=== PATIENT | female | born 2000 | race Caucasian/White ===

== ENCOUNTER 2023-12-30 19:23 | Emergency (ER) | payer OTHER, SELFPAY ==
--- NOTE | 2023-12-30 19:30 | ED.EYEPROB ---
HPI - Eye Problem General Chief complaint: Eye Problems Stated complaint: R eye pain Time Seen by Provider: 12/30/23 19:58 Source: patient and RN notes reviewed Mode of arrival: ambulatory Limitations: no limitations History of Present Illness HPI Narrative: 23-year-old female presents with concern for right eye drainage, burning, itchiness that started today while she was at work. She denies injury to the eye. She does not were contact lenses. She denies vision changes. chief complaint: other (eye drainage) Related Data Allergies Allergy/AdvReac Type Severity Reaction Status Date / Time No Known Allergies Allergy Verified 12/30/23 19:50 Review of Systems Review of Systems: CONSTITUTIONAL: Denies malaise, chills, sweats, or fever. EYES: Denies visual changes. Reports right eye redness, irritation, discharge. ENT: Denies rhinorrhea, congestion, sinus pain, otalgia or sore throat. SKIN: Denies rash or itching. NEUROLOGIC: Denies numbness, weakness, or headache. PSYCHIATRIC: Denies anxiety or depression. All systems reviewed & are unremarkable except as noted in HPI and below PMFSH Comments At time of signature, agree with nursing past medical, surgical, social and family history. There is no relevant family history pertinent to the presenting complaint Exam Narrative: GENERAL: Well-appearing, well-nourished, and in no acute distress. HEAD: Normocephalic, atraumatic. EYES: PERRLA, sclera clear, and EOMI. No nystagmus. Right conjunctivae injected, mildly edematous. Upper and lower eyelid unremarkable, no periorbital edema noted ENT: Nares clear, turbinates pink, no rhinorrhea or epistaxis. Mucous membranes moist. TM pearly saleem with sharp light reflex bilaterally; no tragal tenderness. NECK: Supple. CHEST: No respiratory distress. Speaks in full sentences. HEART: Regular rate and rhythm. SKIN: Warm, dry, no visible rash. NEURO: Alert and oriented x3. PSYCH: Normal mood and affect Course Course Emergency Course: Patient is aware of diagnosis, understands and agrees to treatment plan. Anticipatory guidance given. Patient agrees to follow-up as directed and is aware of reasons to seek care at the emergency department. Portions of this record may have been created with voice recognition software Level of Care: Express Care Visit Vital Signs Vital signs: Reviewed. MDM - Eye Problem MDM Narrative Medical decision making narrative: Consideration of the following conditions may be warranted for the presenting problem, they are not final diagnoses: Bacterial conjunctivitis, allergic conjunctivitis, viral conjunctivitis, foreign body, blepharitis, chalazion, hordeolum, corneal abrasion, preseptal cellulitis, orbital cellulitis. No evidence of proptosis, ophthalmoplegia, vision loss, pain with eye movement. Exam findings show no acute concerns or changes; patient is non-toxic appearing and is in no distress. Patient is appropriate for outpatient treatment and follow-up. Critical Care Time Critical Care Time Critical Care Time: No Discharge Plan Discharge Clinical Impression: Conjunctivitis Patient Disposition: Home, Self-Care Condition: Stable Instructions: Conjunctivitis (ED) Additional Instructions: Do not touch or rub your eye. Use a warm or cool washcloth on your eye for comfort Use eyedrops as directed Practice good handwashing and hygiene to prevent spread of infection You may take Tylenol or ibuprofen for pain Follow-up with PCP or metal framer if condition is not improving in 2-3days. Go to the emergency room if you have pain behind your eye, pressure behind your eye, difficulty seeing, or other severe symptoms Prescriptions: New polymyxin B sulf-trimethoprim 10,000 unit- 1 mg/mL drops 1 drp RIGHT EYE Q3H 7 Days Qty: 10 0RF Rx Instructions: while awake; do not exceed 6 doses in 24 hours Follow-up/Referrals: UNKNOWN,DOCTOR [Non-Staff] - Time of Dis
[2023-12-30 19:45] VITALS: BP 123/78; PULSE 76; RESP 18; TEMP 36.6; O2SAT 100
== END 2023-12-30 20:08 | disposition home or self-care (01) ==
PROVIDERS: Emergency Provider Nurse Practitioner
DX: H10.9 Unspecified conjunctivitis (principal)
CPT/HCPCS: 99213; G0463

== ENCOUNTER 2025-01-25 10:34 | Emergency (ER) | payer OTHER, SELFPAY ==
[2025-01-25 10:36] VITALS: BP 135/87; PULSE 92; RESP 18; TEMP 36.6; O2SAT 100
--- OUTSIDE RECORDS SUMMARY | 2025-01-25 11:07 | XMS_ITS | Clinical Summary ---
Author Organization [facility] Address [address] [place] [address] Care Team Providers Care Dictaphone Mechanic Name Role Phone Shasha Anderson MD Unavailable [phone] Shasha Anderson MD Primary Care Provider [phone] Source Comments [facility],non-owned Affiliates and Associated Physician Practices is amultiple site organization consisting of ambulatory clinics and hospital sitesin [place], [place], [place] and [place]. This disclosure is being madepursuant to the Care Everywhere program and may not contain all information available regarding this patient. Last updated 18.[facility] [employer] Allergies No known active allergies Medications * Be aware that medications may not be up to date on this document. Alwaysverify current medications with the patient. SPRINTEC 28 0.25-35 MG-MCG tablet TAKE 1 TABLET BY MOUTH ONCE DAILY 84 tablet 12/03/2019 Active Active Problems Problem Noted Date Diagnosed Date Interstitial cystitis 09/14/2019 Labial swelling 10/25/2016 Assessment & Plan (10/27/2016 11:56 AM BOILERS INSPECTOR): Assessment: Vesna is a previously healthy 16 y.o. female with labial swelling, vaginal discharge, fevers, dysuria concerning for STI vs vulvovaginitis vs post- viral syndrome s/p influenza vs Behcets. No evidence of fluctuant mass on exam, abscess/cyst less likely. No aphthous ulcers or other known lesions of the GI tract and no fam hx of Behcets. HSV negative, GC/chlamydia, chlamydia trachomatis pending; pt also denies sexual activity so STI less likely. UAx2 concerning for UTI; urine culture x2 negative. Per exam under sedation, swollen R labia minora with ulcer of about 2 cm in the internal aspect and some white vaginal discharge appreciated. Post-viral syndrome likely given symptom onset and exclusion of other likely etiology. Patient currently has poor PO intake and has not been able to move significantly due to pain. Current pain management with toradol has improved pain. Patient still has catheter in place and has not attempted voiding without catheter since admission. Patient has also been unable to maintain personal hygiene around ulcer due to pain. Discharge planning is contingent upon improved PO intake, ability to void without bautista catheter, and ability to maintain hygiene around ulcerated and edematous labia. Plan: - Discontinue bautista catheter today - Urine GC/chlamydia, HSV viral cx, chlamydia trachomatis cx, urine cx pending - HCG, HSV PCR negative; UA cx (10/23) by PCP negative - Clindamycin IV 600mg q8h (started 10/25), Rocephin IV 2000mg q24h (started 10/25) for coverage of common UTI organisms, MRSA - Oxycodone 5mg q4h, Tylenol 650mg q4h PRN, Ibuprofen 400mg q6h pRN, Morphine 2mg IV q2 PRN, topical lidocaine 4% PRN for pain management - Metoclopramide 10mg IV q6h PRN, Zofran 8mg q6h PRN for nausea, vomiting - D5 1/2 NS with 20meq KCL at 96 mL/hr (maintenance fluids) - Regular diet - Surgery signed off; Ob-road consultant consult pending Assessment & Plan (10/27/2016 11:28 AM BOILERS INSPECTOR): Assessment: Vesna is a 16 year old female who presents with right labia minora swelling with ulcerations noted and urinary retention secondary to pain. Differential for ulcerations include STI organisms (HSV, G/C), however could be post viral from influenza, or rheumatologic such as Bechets, Crohns. At risk of vulvovaginitis with secondary infection (fungal or bacterial) from ulceration. Requiring significant pain control with IV medications, has not been able to move until today. Improvement with antiinflammatory medications. May need to consider biopsy of the lesion. Requires admission until patient is able to tolerate PO, have pain control with PO meds, urinate by herself, and be able to provide self hygiene. Plan: - discontinue Bautista catheter - Pain control with scheduled IV toradol, oxycodone prn moderate pain (breakthrough) - topical lidocaine 3 times daily prn pain, perineal ice pack, will attempt sitz baths today - phenazopyridine for dysuria -Regular diet - MIVF - Zofran 8mg q 6hrs prn nausea, vomiting; reglan 10mg q 6h - will discontinue antibiotics per culture results - will check BMP to get Cr with nephrotoxic meds - will continue acyclovir per OB recs - IV nexium for heartburn - follow up with Dr. Kim outpatient Assessment & Plan (10/26/2016 10:19 PM BOILERS INSPECTOR): Assessment: Vesna is a previously healthy 16 y.o. female with labial swelling, vaginal discharge, fevers, dysuria concerning for Bartholin gland cyst vs STI vs vulvovaginitis vs post-viral syndrome s/p influenza. No evidence of fluctuant mass on exam, abscess/cyst less likely. Per exam under sedation, swollen R labia minora with ulcer of about 2 cm in the internal aspect and some white vaginal discharge appreciated. HSV negative, GC/chlamydia, chlamydia trachomatis pending; however, pt denies sexual activity so also less likely. UAx2 concerning for UTI; however, urine culture x1 negative, second cx pending. Plan: - Bautista catheter in place to aid with voiding - Urine GC/chlamydia, HSV viral cx, chlamydia trachomatis cx, urine cx pending - HCG, HSV PCR negative; UA cx (10/23) by PCP negative - Clindamycin IV 600mg q8h (started 10/25), Rocephin IV 2000mg q24h (started 10/25) for coverage of common UTI organisms, MRSA - Oxycodone 5mg q4h, Tylenol 650mg q4h PRN, Ibuprofen 400mg q6h pRN, Morphine 2mg IV q2 PRN, topical lidocaine 4% PRN for pain management - Metoclopramide 10mg IV q6h PRN, Zofran 8mg q6h PRN for nausea, vomiting - D5 1/2 NS with 20meq KCL at 96 mL/hr (maintenance fluids) - Regular diet - Surgery signed off; Ob-road consultant consult pending Assessment & Plan (10/26/2016 6:20 PM BOILERS INSPECTOR): Assessment: 16yo female with a 1 day hx of labial swelling presents with severe edema of the left labia minora. Etiology unknown, negative for HSV, culture + for nellie, urine NGTD. Genital ulcer from viral infection possible. Can't r/o malignacy. Plan: -Treated yeast with Diflucan. -Abx Clinda and Rocephin -Zofran and Reglan for nausea. -Toradol, Morphine, oxy for pain -REgular diet -Surgery consulted- no intervention possible when patient was sedated yesterday- not a cyst or abscess for I&D -OBGYN consulted- trying to determine inpatient biopsy vs outpatient. Assessment & Plan (10/26/2016 11:17 AM BOILERS INSPECTOR): Assessment: Vesna is a 16 year old female who presents with right labia minora swelling with ulcerations noted and urinary retention secondary to pain. Differential for ulcerations include STI organisms (HSV, G/C), however could be post viral from influenza, or rheumatologic Bechets, Crohns. At risk of vulvovaginitis with secondary infection (fungal or bacterial) from ulceration. Requiring significant pain control. May need to consider biopsy of the lesion. Plan: -continue Bauitsta catheter in place -FU urine culture -Pain control scheduled oxycodone, morphine for break thorough pain -Regular diet - MIVF - Zofran 8mg q 6hrs prn nausea, vomiting - OBGYN consult - will cover MRSA with Clindamycin and Rocephin to cover common UTI organisms - topical lidocaine q 4 hrs Assessment & Plan (10/25/2016 2:49 PM BOILERS INSPECTOR): Assessment: Vesna is a previously healthy 16 y.o. female with Plan: Assessment & Plan (10/25/2016 3:07 AM BOILERS INSPECTOR): Assessment: Vesna is a 16 year old female who presents with right labia minora swelling with ulcerations noted and urinary retention secondary to pain. Bautista placed in ER, cultures obtained. Denies sexual activity, started one new bathroom product (body wash) last week, and denies using any sexual toys. Etiology includes STDs (gonorrhea, chlamydia), HSV infection, bacterial infection. Plan: -Bautista catheter in place -FU G/C urine -FU urine culture -FU HSV PCR -Pain control with tylenol, ibuprofen, oxycodone PRN, and morphine PRN -MIVF -Regular diet -Zofran PRN Patellofemoral stress syndrome of both knees 10/2015 Pain in the hip 02/10/2010 Knee pain 02/10/2010 Immunizations Immunization Administration Dates Next Due DTaP VACCINE IM (6wk-6yrs) 01/17/2006,,2001,08/28,2001 HEP A PEDS 2 DOSE 06/18/2016,06/24/2014 HEP B VACCINE, PED/ADOL 01/27/2002,2001, HIB BOOSTER 11/16/2002, 2,2001,06/23 Human Papilloma Virus Nineva lent Vaccine 06/18/2016 Human Papilloma Virus Manuel valent Vaccine 08/27/2014,06/24/2014 INFLUENZA VACCINE, QUADR. (F LUZONE; FLULAVAL; FLUARIX; AFLURIA QUADRIVALENT; 6MO+), 0.5 ML (IIV4) 06/25/2018 MENINGOCOCCAL ACWY (MCV4P) VAC IM 06/25/2018,11/2012 MMR 01/17/2006,04/23/2002 PNEUMOCOCCAL CONJ, PEDS 09/15/2002,10/30,2001,06/23 POLIO IPV 01/17/2006, 3,2001,06/23 PPD 01/17/2006,04/23/2002 TDAP (7yrs+) 02/09/2013 VARICELLA 02/09/2013,09/15/2002 Family History Medical History Relation Name Comments Hypertension Father Thyroid Disease Mother Relation Name Status Comments Father Mother Social History Tobacco Use Types Packs/Day Years Used Date Smoking Tobacco: Never Smokeless Tobacco: Never Alcohol Use Standard Drinks/Week Comments No 0 (1 standard drink = 0.6 oz pur e alcohol) Comments No Sex and Gender Information Value Date Recorded Sex Assigned at Not on file Legal Sex Female 6:51 AM BOILERS INSPECTOR Gender Identity Not on file Sexual Orientation Not on file Last Filed Vital Signs Vital Sign Reading Time Taken Comments Blood Pressure 104/64 06/25/2018 9:10 AM CDT Pulse 71 06/25/2018 9:10 AM CDT Temperature 36.6 C (97.8 F) 06/16/2019 1:37 PM CDT Respiratory Rate 16 10/27/2016 6:05 PM BOILERS INSPECTOR Oxygen Saturation 98% 10/27/2016 6:05 PM BOILERS INSPECTOR Inhaled Oxygen Concentration 100% 10/24/2016 1 1:25 PM BOILERS INSPECTOR Weight 57.2 kg (126 lb) 06/16/2019 1:37 PM CDT Height 158.1 cm (5' 2.25 ) 06/25/2018 9:10 AM CD T Body Mass Index - - Plan of Treatment Health Maintenance Due Date Last Done Comments PAP SMEAR 2001 HIV SCREENING 2016 MENINGOCOCCAL (Group B) VACC INE SHARED DECISION-MAKING (1 of 2 - Standard) 2017 CHLAMYDIA/GONORRHEA SCREENING 11/13/2018, 10/25/2016, 10/25/2016 HEPATITIS C SCREENING 04/13/2019 DTAP/TDAP/TD VACCINES (7 - T d or Tdap) 02/09/2023 02/09/2013, 01/17/2006, 11/16/2002, Additional history exists COVID-19 VACCINE (1 - 2023-2 5 season) 2024 DEPRESSION SCREENING 09/09/2024 INFLUENZA VACCINE (Season Ended) 2025 06/25/20 18 ZOSTER VACCINE (1 of 2) 2051 HEPATITIS B VACCINE Completed 01/27/2002, 2001, 2001 PNEUMOCOCCAL VACCINE Completed 09/15/2002, 2001, 2001, Additional history exists HIB VACCINE Completed 11/16/2002, 10/11, 2001, Additional history exists HPV VACCINE Completed 06/18/2016, 08/09, 06/24/2014 MENINGOCOCCAL GROUPS A/C/Y/W VACCINE Completed 06/25/2018, 02/09/2013 Goals Goal Patient Goal Type Associated Problems Recent Progress Patient-Stated? Author Use safety retraint in car Lifestyle On track( 019 3:37 PM BOILERS INSPECTOR) Anju Diaz RN Procedures Procedure Name Priority Date/Time Associated Diagnosis Comments CHLAMYDIA + GC AMPLIFIED PROBE Routine 11/13/2017 11:26 AM BOILERS INSPECTOR Dysuria from Last 3 Months or Most Recently Relevant to Health Maintenance Results * CHLAMYDIA + GC AMPLIFIED PROBE (11/13/2017 11:26 AM BOILERS INSPECTOR) Chlamydia CARRIE Urine Negative Negative [facility] ACCOUNT BILL GC CARRIE Urine Negative Negative [facility] ACCOUNT BILL Microbiology URINE / Unknown 11/13/2017 1 1:26 AM BOILERS INSPECTOR 11/13/2017 Narrative Resulting Agency Comment [facility] [place] [address] [facility] [place] [id number] Shasha Anderson MD LAB - MICROBIOLOGY ORDERABLES Final Result [facility] ACCOUNT BILL [address] [place] [address] from Last 3 Months or Most Recently Relevant to Health Maintenance Insurance [facility] [place] [id number] Care Teams Dictaphone Mechanic Relationship Specialty Start Date End Date Shasha Anderson MD PCP - Pediatrics 09/20/09 Shasha Anderson MD PCP - General Pediatrics 06/04/14
--- OUTSIDE RECORDS SUMMARY | 2025-01-25 11:07 | XMS_ITS | Encounter Summary ---
Author Organization [facility] Address [address] [place] [id number] Care Team Providers Care Human Intelligence Name Role Phone Johanny Veliz APRN Primary Care Provider [phone] Erum Oquendo NP Primary Care Provider [phone] Encounter Details Date Type Department Care Team (Late st Contact Info) Description 11/29/2023 IntroNiche Message [address] [id number] [facility] Social History Tobacco Use Types Packs/Day Years Used Date Smoking Tobacco: Never Smokeless Tobacco: Never Alcohol Use Standard Drinks/Week Comments No 0 (1 standard drink = 0.6 oz pur e alcohol) AUDIT-C Answer Date Recorded Frequency of Alcohol Consumption Never 07/16/2019 Average Number of Drinks Not on file 019 Frequency of Binge Drinking Not on file 03/2019 PHQ-2 Answer Date Recorded Patient Health Questionnaire-2 Score 0 06/25/2023 Comments No Sex and Gender Information Value Date Recorded Sex Assigned at Not on file Legal Sex Female 8:01 AM CDT Gender Identity Not on file Sexual Orientation Not on file documented as of this encounter Plan of Treatment Not on file documented as of this encounter Visit Diagnoses Not on filedocumented in this encounter Care Teams Human Intelligence Relationship Specialty Start Date End Date Johanny Veliz APRN PCP - General NURSE PRACTITIONER 11/08/23 03/25/24 Erum Oquendo, PANCHO [address] [place] [address] PCP - General NURSE PRACTITIONER 03/26/24 documented as of this encounter
--- OUTSIDE RECORDS SUMMARY | 2025-01-25 11:07 | XMS_ITS | Clinical Summary ---
Author Organization [facility] Address [address] [place] [address] Care Team Providers Care Customer Experience Manager Name Role Phone Jere Erum Luu PIER WORKER Primary Care Provider [phone] Allergies No known active allergies Medications No known medications Active Problems Problem Noted Date Diagnosed Date Interstitial cystitis 08/21/2019 Resolved Problems Problem Noted Date Diagnosed Date Resolved Date Dysuria 07/16/2019 01/23/2024 Labial swelling 10/25/2016 01/23/2024 Overview (06/25/2023): Last Assessment & Plan: Assessment: Vesna is a previously healthy 16 [...] - Regular diet - Surgery signed off; Ob-triage specialist consult pending Influenza A 10/05/2016 01/23/2024 Overview (06/25/2023): Date Onset: 10/05/2016 Patellofemoral stress syndrome of both knees 6 01/23/2024 Knee pain 02/10/2010 01/23/2024 Pain in the hip 02/10/2010 01/23/2024 Immunizations Immunization Administration Dates Next Due Dtap (Acel-Immune) 01/17/2006, 3,2001,2001, HPV GARDASIL 9-VALENT 06/18/2016 HPV4 (Gardasil) 08/27/2014,06/24/2014 Hepatitis A (Havrix [address]) 06/18/2016, 014 Hepatitis B Pediatric 01/27/2002,2001,08/0 05/2001 Hib (Prohibit) 11/16/2002,2001,2001 ,2001 Influenza Adult (Generic) 06/25/2018,06/25/2018 MMR (MMRII) 01/17/2006,04/23/2002 Menactra 06/25/2018,02/09/2013 Pneumococcal (Generic) 09/15/2002,2001,,2001 Polio IPV (Ipol) 01/17/2006,09/15/2002, 1,2001 Tdap (Boostrix) 01/16/2024 Tdap (Generic) 02/09/2013 Varicella (Varivax) 02/09/2013,09/15/2002 Family History Medical History Relation Comments bladder cancer Maternal Grandmother Relation Status Comments Maternal Grandmother Social History Tobacco Use Types Packs/Day Years Used Date Smoking Tobacco: Never Smokeless Tobacco: Never Tobacco Cessation:Counseling Given: No Alcohol Use Standard Drinks/Week Comments No 0 (1 standard drink = 0.6 oz pur e alcohol) AUDIT-C Answer Date Recorded Frequency of Alcohol Consumption Never 07/16/2019 Average Number of Drinks Not on file 019 Frequency of Binge Drinking Not on file 03/2019 PHQ-2 Answer Date Recorded Patient Health Questionnaire-2 Score 0 01/24/2024 Comments No Sex and Gender Information Value Date Recorded Sex Assigned at Not on file Legal Sex Female 8:01 AM CDT Gender Identity Not on file Sexual Orientation Not on file Last Filed Vital Signs Vital Sign Reading Time Taken Comments Blood Pressure 128/74 03/05/2024 11:01 AM CDT Pulse 85 03/05/2024 11:01 AM CDT Temperature 36.1 C (96.9 F) 03/05/2024 11:01 AM CDT Respiratory Rate 18 03/05/2024 11:01 AM CDT Oxygen Saturation 100% 03/05/2024 11:01 AM CDT Inhaled Oxygen Concentration - - Weight 77.1 kg (170 lb) 03/05/2024 11:01 AM CDT Height 157.5 cm (5' 2 ) 03/05/2024 11:01 AM CDT Body Mass Index 31.09 03/05/2024 11:01 AM CDT Plan of Treatment Health Maintenance Due Date Last Done Comments Cervical Cancer Screening Pap Smear (Age 21 to 29) Every 3 Years 2001 Cervical Cancer Screening 2001 Annual Physical 2004 Chlamydia Screening Females ages 16-24 2017 Meningococcal B Vaccine (1 of 2 - Standard) 2017 COVID-19 Vaccine ( - season) 2024 PHQ-2 (Physician Hannah) 09/09/2024 01/24/2024 DTaP, Tdap and Td Vaccines (8 - Td or Tdap) 01/15/2034 01/16/2024, 02/09/2013, 01/17/2006, Additional history exists Hepatitis C 11/13/2053 Postponed from 2019 (Patient Refused) Hepatitis B Vaccines Completed 01/27/2002, 2001, 2001 Pneumococcal Vaccine: Pediatrics (0 to 5 Years) and At-Risk Patients (6 to 49 Years) Aged Out 09/15/2002, 2001, 2001, Additional history exists No longer eligible based on patient's age to complete this topic HPV Vaccines Completed 06/18/2016, 08/09, 06/24/2014 Meningococcal Vaccine Completed 06/25/2018, 013 RSV Immunizations Under 20 Months Aged Out No longer eligible based on patient's age to complete this topic Insurance [employer] [facility] Care Teams Customer Experience Manager Relationship Specialty Start Date End Date Erum Oquendo NP [address] [place] [address] PCP - General NURSE PRACTITIONER 03/26/24
[2025-01-25 11:34] LABS: BEDSIDEPREGUCG Negative (Negative)
[2025-01-25 11:40] LABS: Basophils Absolute Auto 0.1 K/mm3 (0.0-0.1); Basophils Percent Auto 0.8 % (0.2-1.2); Eosinophils Absolute Auto 0.5 K/mm3 (0-0.3); Eosinophils Percent Auto 8.4 % (0-4.4); Hematocrit 40.3 % (37.0-47.0); Immature Granulocyte Absolute 0.02 K/mm3 (0.00-0.031); Immature Granulocyte Percent A 0.3 % (0-0.5); Lymphocytes Absolute Auto 1.39 K/mm3 (0.9-3.2); Mean Corpuscular HGB Conc 32.3 g/dl (32-36); Mean Corpuscular Hemoglobin 27.7 pg (26-34); Mean Corpuscular Volume 85.7 fl (80-100); Mean Platelet Volume 9.3 fl (7.4-10.4); Monocytes Absolute Auto 0.9 K/mm3 (0.1-0.6); Monocytes Percent Auto 14.1 % (2.6-8.5); Neutrophils Absolute Auto 3.5 K/mm3 (1.3-6.7); Neutrophils Percent Auto 54.4 % (45.5-73.1); Platelet Count Result 283 k/mm3 (150-375); Red Cell Distribution Width 13.1 % (11.5-14.5); White Blood Count 6.3 K/mm3 (4.5-10.0)
[2025-01-25 11:43] LABS: Add Urine Microscopic? YES; Appearance Urine Cloudy (Clear); Bacteria Urine 2+ /hpf; Bilirubin Urine Negative (Negative); Blood Urine Negative (Negative); Color Urine Yellow (Yellow); Glucose Urine UA Negative (Negative); Ketones Urine Negative (Negative); Leukocyte Esterase Ur 1+ LEU/UL (Negative); Nitrate Urine Negative (Negative); Non Pathogenic Casts 0-2; Protein Urine Negative (Negative); RBC Urine 0-2 /hpf (0-2); Specific Grav Ur 1.021 (1.001-1.035); Squamous Epithelial Cell Urine Few /hpf (Few); pH Urine 7.5 (5.0-9.0)
[2025-01-25 11:49] LABS: Alanine Aminotransferase 15 U/L (6-35); Albumin Level 4.4 g/dL (3.5-5.1); Alkaline Phosphatase 75 U/L (38-126); Anion Gap 8 mmol/L (4-12); Aspartate Amino Transferase 23 U/L (14-36); Bilirubin,Total 0.5 mg/dL (0.2-1.3); Blood Urea Nitrogen 11 mg/dL (7-17); Calcium 8.8 mg/dL (8.4-10.2); Carbon Dioxide 26 mmol/L (22-30); Chloride 105 mmol/L (98-107); Estimated CRCL calculation 93 ml/min; Estimated Glomerular Filt Rate > 60; Glucose 92 mg/dL (65-110); Lipase 44 U/L (23-300); Potassium 4.1 mmol/L (3.4-5.0); Sodium 139 mmol/L (137-145)
--- OUTSIDE RECORDS SUMMARY | 2025-01-25 13:01 | XMS_ITS | Clinical Summary ---
Author Organization [facility] Address [address] [place] [address] Care Team Providers Care Pivot Maker Name Role Phone Shasha Anderson MD Unavailable [phone] Shasha Anderson MD Primary Care Provider [phone] Source Comments [facility],non-owned Affiliates and Associated Physician Practices is amultiple site organization consisting of ambulatory clinics and hospital sitesin [place], [place], [place] and [place]. This disclosure is being madepursuant to the Care Everywhere program and may not contain all information available regarding this patient. Last updated 18.[facility] [place] Allergies No known active allergies Medications * Be aware that medications may not be up to date on this document. Alwaysverify current medications with the patient. SPRINTEC 28 0.25-35 MG-MCG tablet TAKE 1 TABLET BY MOUTH ONCE DAILY 84 tablet 12/03/2019 Active Active Problems Problem Noted Date Diagnosed Date Interstitial cystitis 09/14/2019 Labial swelling 10/25/2016 Assessment & Plan (10/27/2016 11:56 AM POWERHOUSE ELECTRICIAN): Assessment: Vesna is a previously healthy 16 [...] - Regular diet - Surgery signed off; Ob-paralegal supervisor consult pending Assessment & Plan (10/27/2016 11:28 AM POWERHOUSE ELECTRICIAN): Assessment: Vesna is a 16 year old [...] outpatient Assessment & Plan (10/26/2016 10:19 PM POWERHOUSE ELECTRICIAN): Assessment: Vesna is a previously healthy 16 [...] - Regular diet - Surgery signed off; Ob-paralegal supervisor consult pending Assessment & Plan (10/26/2016 6:20 PM POWERHOUSE ELECTRICIAN): Assessment: 16yo female with a 1 day [...] outpatient. Assessment & Plan (10/26/2016 11:17 AM POWERHOUSE ELECTRICIAN): Assessment: Vesna is a 16 year old [...] consider biopsy of the lesion. Plan: -continue Bautista catheter in place -FU urine culture -Pain control scheduled oxycodone, morphine for break thorough pain -Regular diet - MIVF - Zofran 8mg q 6hrs prn nausea, vomiting - OBGYN consult - will cover MRSA with Clindamycin and Rocephin to cover common UTI organisms - topical lidocaine q 4 hrs Assessment & Plan (10/25/2016 2:49 PM POWERHOUSE ELECTRICIAN): Assessment: Vesna is a previously healthy 16 y.o. female with Plan: Assessment & Plan (10/25/2016 3:07 AM POWERHOUSE ELECTRICIAN): Assessment: Vesna is a 16 year old [...] on file Legal Sex Female 6:51 AM POWERHOUSE ELECTRICIAN Gender Identity Not on file Sexual Orientation Not on file Last Filed Vital Signs Vital Sign Reading Time Taken Comments Blood Pressure 104/64 06/25/2018 9:10 AM CDT Pulse 71 06/25/2018 9:10 AM CDT Temperature 36.6 C (97.8 F) 06/16/2019 1:37 PM CDT Respiratory Rate 16 10/27/2016 6:05 PM POWERHOUSE ELECTRICIAN Oxygen Saturation 98% 10/27/2016 6:05 PM POWERHOUSE ELECTRICIAN Inhaled Oxygen Concentration 100% 10/24/2016 1 1:25 PM POWERHOUSE ELECTRICIAN Weight 57.2 kg (126 lb) 06/16/2019 1:37 [...] car Lifestyle On track( 019 3:37 PM POWERHOUSE ELECTRICIAN) Anju Diaz RN Procedures Procedure Name Priority Date/Time Associated Diagnosis Comments CHLAMYDIA + GC AMPLIFIED PROBE Routine 11/13/2017 11:26 AM POWERHOUSE ELECTRICIAN Dysuria from Last 3 Months or Most Recently Relevant to Health Maintenance Results * CHLAMYDIA + GC AMPLIFIED PROBE (11/13/2017 11:26 AM POWERHOUSE ELECTRICIAN) Chlamydia [place] Urine Negative Negative [facility] ACCOUNT BILL GC [place] Urine Negative Negative [facility] ACCOUNT BILL Microbiology URINE / Unknown 11/13/2017 1 1:26 AM POWERHOUSE ELECTRICIAN 11/13/2017 Narrative Resulting Agency Comment [facility] [place] [address] [place] [id number] Shasha Anderson MD LAB - MICROBIOLOGY ORDERABLES Final Result [facility] ACCOUNT BILL [address] [place] [id number] from Last 3 Months or Most Recently Relevant to Health Maintenance Insurance [facility] [place] [id number] Care Teams Pivot Maker Relationship Specialty Start Date End Date Shasha Anderson MD PCP - Pediatrics 09/20/09 Shasha Anderson MD PCP - General Pediatrics 06/04/14
--- OUTSIDE RECORDS SUMMARY | 2025-01-25 13:01 | XMS_ITS | Clinical Summary ---
Author Organization [facility] Address [address] [place] [address] Care Team Providers Care Lead Advisor Name Role Phone Jere Erum Luu AGENCY MANAGER Primary Care Provider [phone] Allergies No known active allergies Medications No [...] - Regular diet - Surgery signed off; Ob-mirror installer consult pending Influenza A 10/05/2016 01/23/2024 Overview [...] Vaccine ( - season) 2024 PHQ-2 (Physician [place]ife) 09/09/2024 01/24/2024 DTaP, Tdap and Td Vaccines [...] patient's age to complete this topic Insurance [employer] [facility] Care Teams Lead Advisor Relationship Specialty Start Date End Date Erum Oquendo NP [address] [place] [address] PCP - General NURSE PRACTITIONER 03/26/24
--- OUTSIDE RECORDS SUMMARY | 2025-01-25 13:01 | XMS_ITS | Encounter Summary ---
Author Organization [facility] Address [address] [place] [id number] Care Team Providers Care Thread Spinner Name Role Phone Johanny Veliz APRN Primary Care Provider [phone] Erum Oquendo NP Primary Care Provider Encounter Details Date Type Department Care Team (Late st Contact Info) Description 11/29/2023 [facility] Message [address] [id number] [facility] Social History Tobacco Use Types [...] on filedocumented in this encounter Care Teams Thread Spinner Relationship Specialty Start Date End Date Johanny Veliz APRN PCP - General NURSE PRACTITIONER 11/08/23 03/25/24 Erum Oquendo, PANCHO [address] [place] [address] PCP - General NURSE PRACTITIONER 03/26/24 documented as of this encounter
--- NOTE | 2025-01-25 13:20 | ED_ITS ---
HPI - General Adult General Chief complaint: Back Pain/Injury Stated complaint: back pain, chest discomfort Time Seen by Provider: 01/25/25 12:37 History of Present Illness HPI narrative: 24-year-old female present to the emergency department for evaluation for multiple symptoms including painful urination, sinus congestion and constipation. Patient did present to Urgent Care few days ago and was started on Macrobid. Patient states this has not helped with her urinary symptoms. Related Data Allergies Allergy/AdvReac Type Severity Reaction Status Date / Time No Known Allergies Allergy Verified 01/25/25 10:40 Review of Systems 2 Review of Systems: All systems reviewed & are unremarkable except as noted in HPI and below Exam 2 Narrative: APPEARANCE: Well appearing, no pain, no distress, well-nourished. HEAD: normocephalic, atraumatic. EYES: PERRLA/EOMI, conjunctivae clear. NOSE: Normal no drainage EARS:TMS clear with good light reflex. THROAT: Pharynx clear, no exudate. NECK: Supple. No adenopathy, no masses. RESPIRATORY: Airway patent, respirations nonlabored. Clear to auscultation bilaterally, no rales, rhonchi, wheezing. CARDIOVASCULAR: Regular rate and rhythm without murmurs rubs or gallops. ABDOMINAL: Soft, nontender, nondistended, normal bowel sounds MUSCULOSKELETAL: Moves all extremities. Strength/ROM intact, No edema, No calf tenderness. NEURO: Alert. Cranial nerves II through XII intact. Good gait. Good coordination SKIN: Warm, dry. Normal Color Course Vital Signs Vital signs: Vital Signs Temperature 97.9 F 01/25/25 10:36 Pulse Rate 92 01/25/25 10:36 Respiratory Rate 18 01/25/25 10:36 Blood Pressure 135/87 01/25/25 10:36 Pulse Oximetry 100 01/25/25 10:36 Temperature 97.9 F 01/25/25 10:36 Pulse Rate 92 01/25/25 10:36 Respiratory Rate 18 01/25/25 10:36 Blood Pressure 135/87 01/25/25 10:36 Pulse Oximetry 100 01/25/25 10:36 Medical Decision Making [facility] Narrative Medical decision making narrative: 24-year-old female presents emergency department for evaluation for sinus congestion and urinary symptoms. Patient is currently afebrile with no leukocytosis and a stable hemoglobin of 13. No acute abnormalities on her CMP. UA was significant for UTI. Patient describes issues with constipation patient was encouraged to start taking MiraLax increase her hydration. All questions concerns were addressed patient was comfortable the plan for discharge and close follow-up. Differential Diagnosis Differential Diagnosis: Sinusitis, seasonal allergies, urinary tract infection, constipation, dehydration Vital Signs Vital Signs: Vital Signs Temperature 97.9 F 01/25/25 10:36 Pulse Rate 92 01/25/25 10:36 Respiratory Rate 18 01/25/25 10:36 Blood Pressure 135/87 01/25/25 10:36 Pulse Oximetry 100 01/25/25 10:36 Temperature 97.9 F 01/25/25 10:36 Pulse Rate 92 01/25/25 10:36 Respiratory Rate 18 01/25/25 10:36 Blood Pressure 135/87 01/25/25 10:36 Pulse Oximetry 100 01/25/25 10:36 Lab Data Lab results reviewed: Yes I reviewed the patient's lab results. 01/25/25 11:33 01/25/25 11:33 Labs: Lab Results 01/25/25 01/25/25 Range/Units 11:32 11:33 WBC 6.3 (4.5-10.0) K/mm3 RBC 4.70 (4.2-5.4) M/mm3 Hgb 13.0 (12.0-15.0) g/dL Hct 40.3 (37.0-47.0) % MCV 85.7 (80-100) fl MCH 27.7 (26-34) pg MCHC 32.3 (32-36) g/dl RDW 13.1 (11.5-14.5) % Plt Count 283 (150-375) k/mm3 MPV 9.3 (7.4-10.4) fl Immature Gran % (Auto) 0.3 (0-0.5) % Neut % (Auto) 54.4 (45.5-73.1) % Lymph % (Auto) 22.0 (18.3-44.2) % Mitchell % (Auto) 14.1 H (2.6-8.5) % Eos % (Auto) 8.4 H (0-4.4) % Baso % (Auto) 0.8 (0.2-1.2) % Lymph # (Auto) 1.39 (0.9-3.2) K/mm3 Mitchell # (Auto) 0.9 H (0.1-0.6) K/mm3 Eos # (Auto) 0.5 H (0-0.3) K/mm3 Baso # (Auto) 0.1 (0.0-0.1) K/mm3 Abs Immat Gran (auto) 0.02 (0.00-0.031) K/mm3 Absolute Neuts (auto) 3.5 (1.3-6.7) K/mm3 Absolute Nucleated RBC 0.000 (0.0-0.012) K/mm3 Nucleated RBC % 0.0 (0.0-0.2) % Sodium 139 (137-145) mmol/L Potassium 4.1 (3.4-5.0) mmol/L Chloride 105 (98-107) mmol/L Carbon Dioxide 26 (22-30) mmol/L Anion Gap 8 (4-12) mmol/L BUN 11 (7-17) mg/dL Creatinine 0.76 (0.7-1.0) mg/dL Estim Creat Clear Calc 93 ml/min Estimated GFR > 60 (59 - ) Glucose 92 (65-110) mg/dL Calcium 8.8 (8.4-10.2) mg/dL Total Bilirubin 0.5 (0.2-1.3) mg/dL AST 23 (14-36) U/L ALT 15 (6-35) U/L Alkaline Phosphatase 75 (38-126) U/L Total Protein 8.0 (6.3-8.2) g/dL Albumin 4.4 (3.5-5.1) g/dL Lipase 44 (23-300) U/L Urine Color Yellow (Yellow) Urine Appearance Cloudy H (Clear) Urine pH 7.5 (5.0-9.0) Ur Specific [place] 1.021 (1.001-1.035) Urine Protein Negative (Negative) mg/dL Urine Glucose (UA) Negative (Negative) mg/dL Urine Ketones Negative (Negative) mg/dL Ur Blood (Man) Negative (Negative) Urine Nitrate Negative (Negative) Urine Bilirubin Negative (Negative) Urine Urobilinogen 1.0 (<2.0) mg/dL Leukocyte Esterase Rfl 1+ H (Negative) CAM/UL Urine RBC 0-2 (0-2) /hpf Urine WBC 11-20 H (0-3) /hpf Ur Squamous Epith Cells Few (Few) /hpf Urine Bacteria 2+ H /hpf Urine Casts 0-2 POC Urine HCG, Qual Negative (Negative) Discharge Plan Discharge Clinical Impression: Sinus congestion, Urinary tract infection Patient Disposition: Home Condition: Stable Instructions: Antibiotic Form, Constipation (DC), Urinary Tract Infection in Women (DC) Additional Instructions: Stop taking the Macrobid and start taking Keflex as directed. Start taking Claritin or Zyrtec as a mild decongestant. Significantly increase your water intake. Add MiraLax to help soften your stools and prevent constipation. Have close follow-up with your primary care physician. If you have any worsening symptoms then please call or return to the emergency department. Patient Language: German Prescriptions: New cephalexin 500 mg capsule 500 mg PO Q8H 7 Days Qty: 21 0RF No Action polymyxin B sulf-trimethoprim 10,000 unit- 1 mg/mL drops 1 drp RIGHT EYE Q3H 7 Days Qty: 10 0RF Rx Instructions: while awake; do not exceed 6 doses in 24 hours Follow-up/Referrals: UNKNOWN,DOCTOR [Primary Care Provider] -
== END 2025-01-25 13:35 | disposition home or self-care (01) ==
PROVIDERS: Physician Assistant; Emergency Provider Emergency Medicine
DX: N39.0 Urinary tract infection, site not specified (principal); R09.81 Nasal congestion
CPT/HCPCS: 36415; 80053; 81001; 81025; 83690; 85025; 87086; 99283